=== PATIENT | male | born 1940 | race Caucasian/White ===

== ENCOUNTER 2019-07-20 07:27 | Inpatient (IN) | payer OTHER ==
[2019-07-20] MEDS ORDERED: ONDANSETRON 4 MG/2 ML VIAL ONE (08:19)
[2019-07-20] MEDS ORDERED: MORPHINE 4 MG/ML SYR ONE (08:19)
[2019-07-20 08:39] LABS: Absolute Lymphocytes (CBC) 1.1 K/uL (0.7-4.9); Basophils % 0.5 % (0-1.3); Hematocrit 48.2 % (39.6-49.0); Lymphocytes % 8.6 % (15.3-44.8); MPV 9.9 fL (7.6-11.3); RBC Red Blood Cell Count 5.21 M/uL (4.33-5.43)
[2019-07-20 08:49] LABS: Albumin 4.2 g/dL (3.4-5.0); Bilirubin Direct 0.1 mg/dL (0-0.2); Bilirubin Total 0.5 mg/dL (0.2-1.0); Potassium 3.8 mmol/L (3.5-5.1); Protein, Total 8.2 g/dL (6.4-8.2)
--- NOTE | 2019-07-20 09:13 | RAD REPORT ---
EXAM DESCRIPTION: CT - Abdomen Pelvis W Contrast - 07/20/2019 8:49 am CLINICAL HISTORY: Abdominal pain COMPARISON: none. TECHNIQUE: Computed axial tomography of the abdomen pelvis was obtained. 100 cc Isovue-300 was admin istered intravenously. Oral contrast was not requested which limits evaluation of bowel. All CT scans are performed using dose optimization technique as appropriate and may include automated exposure control or mA/KV adjustment according to patient size. FINDINGS: Liver, spleen, pancreas and adrenals are unremarkable. Bilateral renal cysts Large right inguinal hernia contains large and small bowel. Ileum is obstructed at the hernia site. A dditionally, the ascending colon is dilated at the hernia site. Several loops of small bowel are mode rately dilated. The wall of several loops of small bowel is thickened. Ascending colon measures 9 shaan timeters Small amount of ascites. Fluid is present within the mesenteric leaves. . The penis appears to extend through the hernia sac as well. A portion of bladder is herniated through a left inguinal hernia. The penis abuts the left lateral as pect of the hernia sac IMPRESSION: Large right inguinal hernia contains large and small bowel. The ascending colon is obstr ucted as it enters the hernia site. Obstruction of ileum is also suspected. The wall of several loops of small bowel is thickened indicating inflammation or ischemia. Small amount of ascites is present. Fluid is also present within the mesenteric leaves. A close loop obstruction may be present Left inguinal hernia contains portion of bladder
[2019-07-20] MEDS ORDERED: CIPROFLOXACIN 400mg IV 400 MG/200 ML BAG IV ONE (09:20)
[2019-07-20] MEDS ORDERED: METRONIDAZOLE 500mg IVPB 500 MG/100 ML BAG IV ONE (09:20)
--- NOTE | 2019-07-20 09:46 | ER ---
Nurse's Notes [facility] Name: Jose Luis Hunter Age: 79 yrs Sex: Male : 1940 Arrival Date: 07/20/2019 Time: 07:31 Bed 8 Private MD: Diagnosis: Unilateral inguinal hernia, with obstruction, without gangrene Presentation: 07/19 07:41 Chief complaint: Patient states: i have a hernia and was told i need surgery for this tw2 but it started hurting worse this morning and my lower stomach hurts. Coronavirus screen: Proceed with normal triage. Ebola Screen: Patient denies travel to an Ebola-affected area in the 21 days before illness onset. Initial Sepsis Screen: Does the patient meet any 2 criteria? No. Patient's initial sepsis screen is negative. Does the patient have a suspected source of infection? No. Patient's initial sepsis screen is negative. Risk Assessment: Do you want to hurt yourself or someone else? Patient reports no desire to harm self or others. Onset of symptoms was July 20, 2019. 07:41 Method Of Arrival: Wheelchair tw2 07:41 Acuity: EMILIA 3 tw2 09:13 Acuity: EMILIA 2 tw2 Triage Assessment: 07:44 General: Appears in no apparent distress. uncomfortable, slender, Behavior is tw2 cooperative, appropriate for age. Pain: Complains of pain in groin and lower abdomen. Historical: - Allergies: 07:47 No Known Allergies; tw2 - Home Meds: 07:47 None [Active]; tw2 - PMHx: 07:47 CVA; Hypertension; Hernia; tw2 - PSHx: 07:47 Carotid surgery; stents, carotid; tw2 - Immunization history:: Adult Immunizations. - Social history:: Smoking status: Smoking status: Patient reports the use of cigarette tobacco products, smokes one-half pack cigarettes per day. Screenin:37 Abuse screen: Denies threats or abuse. Nutritional screening: No deficits noted. tw2 Tuberculosis screening: No symptoms or risk factors identified. Fall Risk Secondary diagnosis (15 points) impaired mobility. Assessment: 07:45 General: Appears uncomfortable, slender, Behavior is cooperative, appropriate for age. tw2 Pain: Complains of pain in suprapubic area and left lower quadrant and right lower quadrant. Neuro: 09:14 Reassessment: left message for pts daughter at # [phone] to call back regarding tw2 pts allergies, pt states "i really dont know if i am allergic to anything". 09:16 Reassessment: Patient appears in no apparent distress at this time. Patient and/or tw2 family updated on plan of care and expected duration. Pain level reassessed. Patient states feeling better. 09:52 Reassessment: served as facility technician for hernia examination with Dr. Delgadillo at bedside tw2 at this time. 10:02 Reassessment: Dr. Peterson hospitalist at bedside at this time. tw2 10:41 Reassessment: Patient appears in no apparent distress at this time. Patient and/or tw2 family updated on plan of care and expected duration. Pain level reassessed. Patient is alert, oriented x 3, equal unlabored respirations, skin warm/dry/pink. Patient states feeling better. Vital Signs: 07:41 BP 191 / 102; Pulse 78; Resp 17; Temp 98(O); Pulse Ox 100% on R/A; Weight 57.15 kg (R); tw2 Height 5 ft. 8 in. (172.72 cm); Pain 6/10; 09:07 BP 165 / 98; Pulse 64; Resp 17; Pulse Ox 98% on R/A; tw2 09:43 BP 176 / 93; Pulse 90; Resp 17; Pulse Ox 99% on R/A; tw2 10:00 BP 167 / 95; Pulse 81; Resp 17; Pulse Ox 98% on R/A; tw2 10:40 BP 164 / 93; Pulse 88; Resp 17; Pulse Ox 99% on R/A; tw2 07:41 Body Mass Index 19.16 (57.15 kg, 172.72 cm) tw2 ED Course: 07:31 Patient arrived in ED. ag5 07:36 Lena Diane, CASA is Primary Nurse. tw2 07:38 Placed in gown. Bed in low position. Call light in reach. compliance associate on. Pulse ox tw2 on. NIBP on. 07:44 Triage completed. tw2 07:48 Arm band placed on. tw2 07:49 Torres Cooper PA is PHCP. [facility] 07:49 Toño Bonner MD is Attending Physician. jmm 08:04 Initial lab(s) drawn, by me, sent to lab. Inserted saline lock: 20 gauge in right dh3 antecubital area, using aseptic technique. Blood collected. 08:50 CT Abd/Pelvis - IV Contrast Only In Process Unspecified. EDMS 09:03 Notified Nurse Practitioner and/or Physician Airline Pilot of a critical lab result(s), tw2 Lactate 2.2. 09:20 examination of scrotal hernia, NITHIN Olvera. tw2 09:45 Tobias Peterson DO is Hospitalizing Provider. [facility] 10:38 Patient admitted, IV remains in place. tw2 Administered Medications: 08:13 Drug: Zofran (Ondansetron) 4 mg Route: IVP; Site: right antecubital; aa5 09:43 Follow up: Response: No adverse reaction tw2 08:15 Drug: morphine 4 mg Route: IVP; Site: right antecubital; aa5 09:25 Follow up: Response: No adverse reaction; Pain is decreased; RASS: Drowsy (-1) tw2 09:25 Drug: Flagyl 500 mg Volume: 100 ml; Route: IVPB; Rate: 200 ml/hr; Infused Over: 30 tw2 mins; Site: right antecubital; 09:50 Follow up: Response: No adverse reaction; IV Status: Completed infusion tw2 09:50 Drug: Cipro 400 mg Volume: 200 ml; Route: IVPB; Infused Over: 60 mins; Site: right tw2 antecubital; 10:41 Follow up: IV Status: Infusion continued upon admission tw2 Outcome: 09:46 Decision to Hospitalize by Provider. [facility] 10:38 Admitted to OR accompanied by nurse, family with patient, via stretcher, with chart, tw2 Report called to TOREY Bello RN 10:38 Condition: stable 10:38 Instructed on the need for admit. 10:41 Patient left the ED. tw2 Signatures: Dispatcher [employer] EDMS Torres Cooper PA PA jmm Calderon, Audri, RN RN aa5 Lena Diane RN RN tw2 Elizabeth Carney 3 Ester Ceja 5 Corrections: (The following items were deleted from the chart) 08:17 08:04 Inserted saline lock: 20 gauge in left antecubital area, using aseptic technique. aa5 Blood collected. dh3
--- NOTE | 2019-07-20 09:46 | EDPHYS ---
Physician Documentation [facility] Name: Jose Luis Hunter Age: 79 yrs Sex: Male : 1940 Arrival Date: 07/20/2019 Time: 07:31 Bed 8 Private MD: ED Physician Toño Bonner HPI: 07/19 07:53 This 79 yrs old Male presents to ER via Wheelchair with complaints of Groin Pain. m 07:53 The patient presents with swelling, that is moderate. Onset: The symptoms/episode jmm began/occurred this morning. Modifying factors: The symptoms are alleviated by nothing, the symptoms are aggravated by nothing. Associated signs and symptoms: Pertinent positives: abdominal pain, Pertinent negatives: fever. This is a 79 year old male with a history of htn, that presents to the ED with complaints of lower abdominal pain beginning this morning. Denies vomiting or diarrhea. . Historical: - Allergies: 07:47 No Known Allergies; tw2 - Home Meds: 07:47 None [Active]; tw2 - PMHx: 07:47 CVA; Hypertension; Hernia; tw2 - PSHx: 07:47 Carotid surgery; stents, carotid; tw2 - Immunization history:: Adult Immunizations. - Social history:: Smoking status: Smoking status: Patient reports the use of cigarette tobacco products, smokes one-half pack cigarettes per day. ROS: 07:53 Constitutional: Negative for fever, chills, and weight loss, Cardiovascular: Negative jm for chest pain, palpitations, and edema, Respiratory: Negative for shortness of breath, cough, wheezing, and pleuritic chest pain. 07:53 Abdomen/GI: Positive for abdominal pain. 07:53 All other systems are negative. Exam: 07:53 Head/Face: atraumatic. Eyes: EOMI, no conjunctival erythema appreciated ENT: Moist jmm Mucus Membranes Neck: Trachea midline, Supple Chest/axilla: Normal chest wall appearance and motion. Cardiovascular: Regular rate and rhythm. No edema appreciated Respiratory: Normal respirations, no respiratory distress appreciated 07:53 MS/ Extremity: Moves all extremities, no obvious deformities appreciated, no edema noted to the lower extremities Neuro: Awake and alert, normal gait Psych: Behavior is normal, Mood is normal, Patient is cooperative and pleasant 07:53 Constitutional: The patient appears alert, awake, uncomfortable. 07:53 Abdomen/GI: Inspection: abdomen appears normal, Palpation: moderate abdominal tenderness, in the right lower quadrant and left lower quadrant, mass, of the suprapubic area, Rectal exam: 07:53 : Male external genitalia: swelling, scrotal, is noted in the right inguinal area. Vital Signs: 07:41 BP 191 / 102; Pulse 78; Resp 17; Temp 98(O); Pulse Ox 100% on R/A; Weight 57.15 kg (R); tw2 Height 5 ft. 8 in. (172.72 cm); Pain 6/10; 09:07 BP 165 / 98; Pulse 64; Resp 17; Pulse Ox 98% on R/A; tw2 09:43 BP 176 / 93; Pulse 90; Resp 17; Pulse Ox 99% on R/A; tw2 10:00 BP 167 / 95; Pulse 81; Resp 17; Pulse Ox 98% on R/A; tw2 10:40 BP 164 / 93; Pulse 88; Resp 17; Pulse Ox 99% on R/A; tw2 07:41 Body Mass Index 19.16 (57.15 kg, 172.72 cm) tw2 MDM: 08:01 Patient medically screened. [facility] 09:44 Data reviewed: vital signs, nurses notes. Counseling: I had a detailed discussion with [facility] the patient and/or guardian regarding: the historical points, exam findings, and any diagnostic results supporting the discharge/admit diagnosis, lab results, radiology results, the need for further work-up and treatment in the hospital. ED course: I discussed the patient with Dr. Delgadillo and Dr. Peterson. Will admit to Dr. Peterson. . 07/19 07:53 Order name: Basic Metabolic Panel; Complete Time: 08:53 [facility] 07/19 07:53 Order name: CBC with Diff; Complete Time: 08:53 [facility] 07/19 07:53 Order name: Hepatic Function; Complete Time: 08:53 [facility] 07/19 07:53 Order name: Lipase; Complete Time: 08:53 [facility] 07/19 08:08 Order name: Lactate; Complete Time: 09:08 [facility] 07/19 08:51 Order name: CREATININE WHOLE BLOOD; Complete Time: 08:53 [facility] 07/19 07:53 Order name: IV Saline Lock; Complete Time: 08:07 [facility] 07/19 07:53 Order name: Labs collected and sent; Complete Time: 08:07 [facility] 07/19 08:09 Order name: CT Abd/Pelvis - IV Contrast Only; Complete Time: 09:15 [facility] Administered Medications: 08:13 Drug: Zofran (Ondansetron) 4 mg Route: IVP; Site: right antecubital; aa5 09:43 Follow up: Response: No adverse reaction tw2 08:15 Drug: morphine 4 mg Route: IVP; Site: right antecubital; aa5 09:25 Follow up: Response: No adverse reaction; Pain is decreased; RASS: Drowsy (-1) tw2 09:25 Drug: Flagyl 500 mg Volume: 100 ml; Route: IVPB; Rate: 200 ml/hr; Infused Over: 30 tw2 mins; Site: right antecubital; 09:50 Follow up: Response: No adverse reaction; IV Status: Completed infusion tw2 09:50 Drug: Cipro 400 mg Volume: 200 ml; Route: IVPB; Infused Over: 60 mins; Site: right tw2 antecubital; 10:41 Follow up: IV Status: Infusion continued upon admission tw2 Disposition: 14:45 Co-signature as Attending Physician, Toño Bonner MD I agree with the assessment and zahra plan of care. Disposition: 07/20/19 09:46 Hospitalization ordered by Tobias Peterson for Inpatient Admission. Preliminary diagnosis is Unilateral inguinal hernia, with obstruction, without gangrene. - Bed requested for Telemetry/MedSurg (Inpatient). - Status is Inpatient Admission. tw2 - Condition is Stable. - Problem is an acute exacerbation. - Symptoms have improved. Signatures: Dispatcher [employer] Toño Way MD MD cha Mickail, Joel, PA PA jmm Calderon, Audri, RN RN aa5 Lena Diane, RN RN tw2 Corrections: (The following items were deleted from the chart) 10:41 09:46 Hospitalization Ordered by Tobias Peterson DO for Inpatient Admission. Preliminary tw2 diagnosis is Unilateral inguinal hernia, with obstruction, without gangrene. Bed requested for Telemetry/MedSurg (Inpatient). Status is Inpatient Admission. Condition is Stable. Problem is an acute exacerbation. Symptoms have improved. derrek
[2019-07-20] MEDS ORDERED: Ringers Lactate 1,000 ML IV ONE (10:55)
[2019-07-20] MEDS ORDERED: FENTANYL CITR 100 MCG/2 ML ONE ×2 (11:28→12:17)
[2019-07-20] MEDS ORDERED: propofoL 200 MG/20 ML VIAL IV ONE (11:28)
[2019-07-20] MEDS ORDERED: MIDAZOLAM HCL 2 MG/2 ML INJ ONE (11:29)
[2019-07-20] MEDS ORDERED: dexAMETHasone 10 MG/ML VIAL ONE (11:29)
[2019-07-20] MEDS ORDERED: ROCURONIUM 50 MG/5 ML VIAL IV ONE (11:29)
[2019-07-20] MEDS ORDERED: LIDOCAINE 2% MPF 5 ML VIAL ONE (11:29)
[2019-07-20] MEDS ORDERED: EPHEDRINE SULF 50 MG/ML VIAL ONE (12:04)
[2019-07-20] MEDS ORDERED: NS 0.9% VIAL 10 ML ONE (12:04)
[2019-07-20] MEDS ORDERED: INSULIN -REGULAR HUMAN 50 UNIT/0.5 ML ML SQ SCH ×3 (12:29→16:30)
[2019-07-20] MEDS ORDERED: ACETAMINOPHEN 650MG/RECT SUPP PR PRN (12:29)
[2019-07-20] MEDS ORDERED: HYDRALAZINE HCL 20 MG/ML VIAL IV PRN (12:29)
[2019-07-20] MEDS ORDERED: ACETAMINOPHEN 500 MG TAB PO PRN (12:29)
[2019-07-20] MEDS: PIPER/TAZO/NS 3.375gm 3.375 GM/100 ML BAG IVPB SCH ×2 (12:29→18:16)
[2019-07-20] MEDS ORDERED: KETOROLAC 30 MG/ML INJ ONE (12:50)
[2019-07-20] MEDS ORDERED: GLYCOPYRROLATE 0.2 MG/ML SYR ONE (12:52)
--- NOTE | 2019-07-20 12:52 | P.BOP ---
Preoperative diagnosis: large bowel and small bowel obtruction, large incarcerated R inguinal herni Postoperative diagnosis: same Primary procedure: Open repair of large incarcerated inguinal hernia with mesh Estimated blood loss: <50cc Specimen: hernia sac Findings: see dictation Anesthesia: General Drain(s): Other Transferred to: Recovery Room
[2019-07-20] MEDS ORDERED: NEOSTIGMINE 1 MG/ML -5 ML ONE (12:53)
--- NOTE | 2019-07-20 13:40 | P.HP ---
Certification for Inpatient Patient admitted to: Inpatient With expected LOS: >2 Midnights Patient will require the following post-hospital care: None Practitioner: I am a practitioner with admitting privileges, knowledge of patient current condition, hospital course, and medical plan of care. Services: Services provided to patient in accordance with Admission requirements found in Title 42 Section 412.3 of the Code of Federal Regulations Patient History Date of Service: 07/20/19 Primary Care Provider: none Reason for admission: Right scrotal pain History of Present Illness: 79-year-old male presented to the emergency room with right scrotal pain. Patient with history of right inguinal hernia. He has had the hernia for multiple years. He admits recently moving to the area from [facility]. He had done some lifting over the weekend. Today he had more pain in enlargement of the hernia. He had some dry heaves. He denied any fever, chills, chest pain or shortness of breath. His last bowel movement was on Thursday. He denies any melena, nausea or vomiting. Patient came to the ER for further evaluation. In the ER patient was evaluated. CT scan revealed a large right inguinal hernia containing large and small bowel. The ascending colon appeared obstructed. Obstruction of the ileum also suspected. Vargas of several loops of small bowel was thinking indicating inflammation or ischemia. White count 13.3, hemoglobin 16. Platelet count 240. Sodium 141, potassium 3.8. BUN of 20, creatinine 1.2. GFR 59. Glucose will 218. Patient was given pain medication. Surgery was contacted in the ER. Surgery plans for emergent surgery. When I saw the patient ER, surgeon was present. Plan of care discussed with surgeon. Patient stable at this time. Allergies No Known Allergies Allergy (Verified 07/20/19 12:14) Home medications list reviewed: Yes - Past Medical/Surgical History Diabetic: No -: HTN -: Tobacco abuse -: Carotid arterial disease -: Hx of CVA 2019 -: Left carotid stent Psychosocial/ Personal History: Patient is new to the area. From [place], [place]. - Social History Smoking Status: Heavy Tobacco smoker (>10 cigarettes/day) Smoking therapy provided: Yes Patient receptive to therapy: Yes Alcohol use: No CD- Drugs: No Caffeine use: Yes Place of Residence: Home Review of Systems General: As per HPI Eyes: Unremarkable ENT: Unremarkable Respiratory: Unremarkable Cardiovascular: Unremarkable Gastrointestinal: Abdominal Pain, As per HPI Genitourinary: Unremarkable Musculoskeletal: Unremarkable Integumentary: As per HPI Neurological: Unremarkable Lymphatics: Unremarkable Physical Examination - Vital Signs Temperature: 97.2 F Blood Pressure: 143/73 Pulse: 65 Respirations: 16 - Physical Exam General: Alert, In no apparent distress, Oriented x3, Cooperative HEENT: Atraumatic, Mucous membr. moist/pink Neck: Supple Respiratory: Clear to auscultation bilaterally, Normal air movement Cardiovascular: Normal pulses, Regular rate/rhythm Gastrointestinal: Normal bowel sounds, Other (Large right inguinal hernia noted. Pain with palpation noted. Hernia goes in to the scrotal sac) Musculoskeletal: No contractures Integumentary: Tenderness/swelling (Tenderness to the right inguinal scrotal region.) Neurological: Normal speech, Normal strength at 5/5 x4 extr, Normal tone, Normal affect - Studies Laboratory Data (last 24 hrs) 07/20/19 08:04: WBC 13.3 H, Hgb 16.1, Hct 48.2, Plt Count 240 07/20/19 08:04: Sodium 141, Potassium 3.8, BUN 20 H, Creatinine 1.20, Glucose 218 H, Total Bilirubin 0.5, AST 20, ALT 22, Alkaline Phosphatase 99, Lipase 64 L Assessment and Plan - Plan Impression: Large right incarcerated inguinal hernia with obstruction of small and large bowel Acute renal injury suspect dehydration Hypertension History of CVA Tobacco abuse Hyperglycemia suspect diabetes mellitus type 2 History of carotid arterial disease with prior stent Plan: Large right incarcerated inguinal hernia with obstruction of small and large bowel: Patient will be admitted for further evaluation and treatment. Case discussed with surgery. Surgical intervention will be emergent. Await findings and will followup surgery. Will start IV Rocephin. Will continue IV fluids. Will provide medication for pain. DVT prophylaxis will be initiated tomorrow. Will continue to monitor closely. Acute renal injury suspect dehydration: Continue IV fluids. Electrolyte protocol in place. Hypertension: Obtain and verify home medication. Will provide medication as needed History of CVA: Will provide DVT prophylaxis. Tobacco abuse: Patient may require nicotine patch. Hyperglycemia suspect diabetes mellitus type 2: Will provide Accu-Cheks and sliding scale. Will check A1c to determine if patient has underlying diabetes. History of carotid arterial disease with prior stent: Will need to obtain and restart home medication. Discharge Plan: Home Plan to discharge in: 72 Hours - Advance Directives Does patient have a Living Will: No Does patient have a Durable POA for Healthcare: No - Code Status/Comfort Care Code Status Assessed: Yes (Patient is full code) Time Spent Managing Pts Care (In Minutes): 55
[2019-07-20] MEDS ORDERED: GLUCAGON 1 MG/VIAL IM PRN (13:48)
--- NOTE | 2019-07-20 14:16 | CON ---
Date of Consultation: 07/20/2019 This is an emergency phone call for a patient with an incarcerated large right inguinal hernia with b owel incarceration and obstruction. History Of Present Illness: This is the case of a 79-year-old patient, who has not been in the area for so long, but he says that he has this hernia in the right side for sometime, but in the last few hours it became very tender. He denies any other trauma. He was going to fix it 2 years ago, but he had a stroke at that moment, and he has not been able to do so. He noticed a lot of noise in his he rnia before consistent with a bowel content. At this time he went to the point that the bowel may be incarcerated, probably strangulated with a bowel obstruction, unable to eat. He denies any dysuria, hematuria, hematochezia, or melena. He denies any recent traveling out of the country. He denies a [place] family member sick at home. His doctors are not in town and he is new to the area, but he claimed he has no medical history, although there is a history of CVA and hypertension. Past Surgical History: After fully explaining he stated he has cataract surgery, and sent on his car otid. Allergies: NONE. Habits: Patient smokes half a pack a day. He does not drink alcohol. Family History: Noncontributory. Patient had no previous colonoscopies that he remembers. Physical Examination: General: Patient is awake and alert. HEENT: Pupils are equal and reactive, anicteric. Neck: Supple. Chest: Clear. Abdomen: Soft and depressible. Right lower quadrant tenderness. The patient has a large incarcerat ed right inguinal hernia. The scrotum is probably 5 to 6 times bigger than usual from all the intest niya there. Rectal: Deferred. Extremities: Good capillary refill. Laboratory Data: Blood work shows a WBC count of 13.3, with hemoglobin of 16.1, potassium 3.8, gluco se 218, BUN is 20. CAT scan of the abdomen and pelvis interpreted by Dr. Martinez as large right ingu inal hernia containing large and small bowel, the ascending colon is obstructed as it entered the her leann side. Obstruction of the small bowel was thickened indicating inflammation or ischemi a. A small amount of ascites is present. Patient also has a left inguinal hernia which contains por tion of the bladder. Assessment: This is a 79-year-old patient with emergency. Patient has incarceration of probably str angulated right inguinal hernia. He fully explained the emergent repair of the right inguinal hernia , possible laparotomy, possible bowel resection, possible ostomy with benefits, alternatives, and ris ks including, but not limited to infection, bleeding, damage to adjacent structures, anesthesia compl ications, recurrence, OH, and even . He also understands this may not relieve any symptoms, he might need more than one surgical intervention. He may or may not need a mesh. He was explained the pros and cons of mesh placement and he did consent for the mesh use. He also understands other path ology including left inguinal hernia that at this moment is not the emergency, it should be fixed kori ntually. Right now with the emergency we have right now, we might have to concentrate on the intesti nal salvage. He understood the importance of no heavy lifting in the future. The hospitalist is see ing the patient at this moment in the ER and trying to figure out his medical history and his risk fo r surgical intervention. The case was emergently booked in OR. DOMINIC/OMARI Voice ID: [id number] Report ID: [id number]
[2019-07-20] MEDS: NA CHLORIDE 0.9% 1,000 ML IV SCH (15:55)
[2019-07-20] MEDS: INSULIN -REGULAR HUMAN 50 UNIT/0.5 ML ML SQ SCH (18:00)
[2019-07-20 19:36] LABS: Urine Appearance TURBID; Urine Blood 3+ (NEG); Urine Color RED; Urine Glucose TRACE (NEG); Urine Protein 2+ (NEG); Urine Specific Gravity >=1.030 (1.005-1.030)
[2019-07-20] MEDS: ONDANSETRON 4 MG/2 ML VIAL IV PRN (19:45)
[2019-07-20] MEDS: MORPHINE 2 MG/ML SYR IV PRN (19:45)
[2019-07-20] MEDS: FAMOTIDINE 20 MG/2 ML VIAL IV SCH (19:45)
[2019-07-20 20:39] LABS: Urine Bilirubin NEGATIVE (NEG); Urine Microscopic Reflex ORDER UMIC
[2019-07-20 20:59] LABS: Urine RBC TNTC /HPF (NONE SEEN)
[2019-07-20 21:00] LABS: Urine Bacteria <20 /HPF (NONE SEEN); Urine Culture Reflex Order REFLEXED
--- NOTE | 2019-07-20 23:28 | OP ---
Date of Procedure: 07/20/2019 Surgeon: Doyle Delgadillo MD Preoperative Diagnoses: Incarcerated right inguinal hernia with large bowel obstruction and small sariah wel obstruction, large hernia. Postoperative Diagnoses: Incarcerated right inguinal hernia with large bowel obstruction and small b owel obstruction, large hernia. Procedure: Emergent repair of incarcerated right inguinal hernia with mesh. Anesthesia: General. Findings: Incarcerated large and small bowel in the right inguinal hernia causing obstruction. Complications: None. Indications: This is a case of a 79-year-old patient, who comes to the ER today complaining of bloat ing and abdominal pain right lower side with right inguinal hernia pain, seen in the ER and emergentl y found the patient to have a bowel which may be compromised in the right inguinal region. Very larg e hernia with large bowel and small bowel on it causing small bowel obstruction and large bowel obstr uction. The patient was fully explained the need for emergent exploration of that area and open repa ir of right inguinal hernia with possible use of mesh and possible laparotomy, possible resection, po ssible ostomy with benefits, alternatives, and risks including, but not limited to infection, bleedin g, damage to adjacent structures, anesthesia complication, recurrence, OH, and even . He also u nderstands this may not relieve the symptoms, he might need more than one surgical mention. He under stood and signed a consent. Description Of Procedure: Patient was emergently brought to the operating room, placed in supine pos ition. Anesthesia was done without complication. Abdominal area was prepped and draped in the usual sterile fashion. Local anesthetic placed in and then an incision was made in the right inguinal reg ion. We made the incision in a way that we could also hold the bowel in place, we do not what that t o reduce in the abdominal cavity. Rodrigo's fascia was opened, external oblique aponeurosis was opene d in direction of the fibers. Ilioinguinal nerve, iliohypogastric nerve protected behind external ob lique aponeurosis. We noticed large hernia sac going to the scrotum. We opened the hernia sac and c hecked the intestines. We had a kink in the small bowel and large bowel consistent with the findings of bowel obstruction, but the bowel still had peristalsis and still looked viable. There was some s welling over the area as described on the CAT scan, but I do not see the ischemia at this moment. Ephraim avila need bowel resection in the future if we see that this does not recover, but at this time we are go ing to give it a chance as the patient also requests. The abdomen was inspected, pulled out a little more to make sure there is bowel proximal and distal and those areas of kink are viable and they are still viable. So, we reduced this large bowel and small bowel back into the abdominal cavity and re moved the hernia sac. We had spermatic cord on the side with the help of [place]. So at that moment , we proceeded to close the floor of the canal by putting Prolene on the pubic tubercle, shelving edg e of the inguinal ligament, transversalis fascia. A mesh plug large was placed in the deep inguinal ring secured in place with VersaTack, once again making sure that the spermatic cord structures were intact. The hernia sac was previously ligated twice with Prolene making sure the bowel was not invol maciej and then after that I proceeded to place a mesh sheet and the mesh sheet was placed in the floor of the canal, securing to the pubic tubercle, shelving edge of the inguinal ligament, transversalis f ascia, making sure the spermatic cord has no strangulation. At that moment, I proceeded to bring the ilioinguinal nerve and iliohypogastric nerve back into the inguinal canal. Reconstructed the superf icial inguinal ring and closed that with 2-0 Prolene in a running fashion. Rodrigo fascia was closed with 3-0 chromic and the skin was approximated with kimberly. Sponge count and instrument counts were correct. Patient tolerated the procedure well. Patient was sent to recovery in stable condition. This patient still has bowel obstruction until he opens until proven otherwise. So, we going to keep the NG tube in. He has bladder on the opposite side, also we are going to keep the Osorio in for the next 24 hours. He has multiple medical issues and so he is going to be in the ICU overnight and if he improves by tomorrow, then we will proceed accordingly. We will keep the patient n.p.o., bowel re st. If he does not improve in the next few hours, we might have to even go back and do a laparotomy and then check the status of his intestines since at this moment it looks viable, it does not mean th at it may not develop an ischemia. At the same time this area shows 1 obstruction, but he might have more than 1 obstruction that we might not be able to see at this moment. If we see the obstruction does not resolve, then we will have to see for a malignancy or any tumors may be causing that. We mcclure ve no evidence of any colonoscopy at this moment he does not recall, so that is something that has to be checked also. If he does not improve right now, we will check with laparotomy. If he improves, still he will need colonoscopy postoperatively. JAGJIT Voice ID: [id number] Report ID: [id number]
[2019-07-21] MEDS: PIPER/TAZO/NS 3.375gm 3.375 GM/100 ML BAG IVPB SCH ×3 (00:06→18:19)
[2019-07-21] MEDS: ONDANSETRON 4 MG/2 ML VIAL IV PRN ×2 (02:21→12:17)
[2019-07-21] MEDS: MORPHINE 2 MG/ML SYR IV PRN ×3 (02:22→21:01)
[2019-07-21 04:19] LABS: Absolute Lymphocytes (CBC) 1.2 K/uL (0.7-4.9); Basophils % 0.1 % (0-1.3); Hematocrit 48.4 % (39.6-49.0); Lymphocytes % 5.1 % (15.3-44.8); MPV 10.1 fL (7.6-11.3); RBC Red Blood Cell Count 5.22 M/uL (4.33-5.43)
[2019-07-21 04:35] LABS: Magnesium 1.9 mg/dL (1.8-2.4); Potassium 4.9 mmol/L (3.5-5.1); Thyroid Stimulating Hormone 1.03 uIU/mL (0.360-3.740)
[2019-07-21] MEDS ORDERED: NA CHLORIDE 0.9% 500 ML IV ONE ×2 (05:15→22:56)
[2019-07-21] MEDS: NA CHLORIDE 0.9% 1,000 ML IV SCH ×2 (05:24→08:28)
[2019-07-21] MEDS: INSULIN -REGULAR HUMAN 50 UNIT/0.5 ML ML SQ SCH ×4 (05:26→18:00)
--- NOTE | 2019-07-21 07:59 | PN ---
Date of Progress Note: 07/21/2019 Reason For Service: Small bowel obstruction, incarcerated right inguinal hernia. Subjective: Patient is doing better. No complaints. NG tube, minimal. Having passing flatus. Objective: Vital Signs: Afebrile. General: Patient is awake and alert. No distress. HEENT: Pupils anicteric. Abdomen: Soft and benign. Surgical area is intact. Extremities: Good capillary refill. Laboratory Data: Blood work shows WBC count of 24.1 with a hemoglobin of 15.9 and platelets of 212. Chloride is 112, creatinine is 2.14. Assessment And Plan: We will get an abdominal x-rays. We see the abdominal obstruction is resolved. He understands that he still has a chance to go for laparotomy. We see that clinically he does not improve since the bowel in that area, although it looks viable at the moment of the surgery. He is still in observation for the next few hours with the possibility of going back to surgery if we see t hat clinically he does not improve or his bowel does not regain function. We will follow up his WBC count. He is already on antibiotics at this moment. We are still going to continue with bowel rest. NG tube. We are going to discuss with the hydration on this patient. He is having concentrated ur ine and also a low urine output, although his abdomen is benign with no obstruction present in that a domingo. His creatinine also was elevated but his medical doctors are working on that. We are going to encourage incentive spirometry and ambulation. We will follow the patient with you. DOMINIC/OMARI Voice ID: [id number] Report ID: [id number]
[2019-07-21] MEDS: FAMOTIDINE 20 MG/2 ML VIAL IV SCH ×2 (08:11→21:01)
[2019-07-21] MEDS ORDERED: ENOXAPARIN 40 MG/0.4 ML SQ SCH (09:00)
[2019-07-21 09:14] LABS: Blood Morphology Comment NOT SEEN (NOT SEEN); Platelet Estimate ADEQ
--- NOTE | 2019-07-21 09:26 | RAD REPORT ---
EXAM DESCRIPTION: RAD - Abdomen Single View - 07/21/2019 9:18 am CLINICAL HISTORY: Abdominal pain FINDINGS: Air is present within mildly dilated small bowel and colon having the appearance of a mild ileus Nasogastric tube is coiled within the stomach. The tip lies within the gastric fundus. Postsurgical changes are present
[2019-07-21 12:04] LABS: Absolute Lymphocytes (CBC) 1.5 K/uL (0.7-4.9); Basophils % 0.3 % (0-1.3); Hematocrit 46.3 % (39.6-49.0); Lymphocytes % 6.7 % (15.3-44.8); MPV 10.3 fL (7.6-11.3); RBC Red Blood Cell Count 4.99 M/uL (4.33-5.43)
[2019-07-21 12:08] LABS: Potassium 4.7 mmol/L (3.5-5.1)
--- NOTE | 2019-07-21 13:40 | P.PN ---
Subjective Date of Service: 07/21/19 Primary Care Provider: none Chief Complaint: Right scrotal pain Subjective: Other (Patient doing slightly better. Patient is postop inguinal hernia repair) Physical Examination - Vital Signs Temperature: 98.2 F Blood Pressure: 119/83 Pulse: 114 Respirations: 27 Pulse Ox (%): 99 - Physical Exam General: Alert, Cooperative HEENT: Atraumatic Neck: Supple Respiratory: Clear to auscultation bilaterally, Normal air movement Cardiovascular: Abnormal pulses (Sinus tachycardia) Gastrointestinal: Hypoactive, Other (Postoperative changes noted to the inguinal region) Neurological: Normal speech, Normal strength at 5/5 x4 extr, Normal tone, Normal affect - Studies Medications List Reviewed: Yes Assessment & Plan Discharge Plan: Home Plan to discharge in: Greater than 2 days Physician Review Additional Text: Impression: Large right incarcerated inguinal hernia with obstruction of small and large bowel Acute renal failure suspect related to dehydration History of Hypertension History of CVA Tobacco abuse Hyperglycemia with pre diabetes History of carotid arterial disease with prior stent Plan: Large right incarcerated inguinal hernia with obstruction of small and large bowel status post open right inguinal hernia repair: Patient appears to of done well post operatively. Patient remains on IV fluids and antibiotic therapy. Will adjust fluids accordingly. Renal function slightly worse today. Will consult nephrology for further recommendation. Will also order renal ul trasound. Will keep the patient in the ICU to follow closely. Continue hydration. Will also check CPK for possible rhabdomyolysis. Continue DVT prophylaxis. Anticipate improvement over the next 5 days. Acute renal failure suspect dehydration: Will adjust IV fluids. Will consult nephrology. Will obtain renal ultrasound. Hypertension: Hold off on blood pressure medication at this time. Will monitor closely. Will provide medication as needed History of CVA: Will provide DVT prophylaxis. Tobacco abuse: Patient may require nicotine patch. Hyperglycemia with pre diabetes: A1c 5.6. Will monitor closely. History of carotid arterial disease with prior stent: Restart home medication once stable Time Spent Managing Pts Care (In Minutes): 55
[2019-07-21] MEDS ORDERED: D5 0.45 NS 1,000 ML IV SCH (14:00)
--- NOTE | 2019-07-21 14:22 | RAD REPORT ---
EXAM DESCRIPTION: RAD - Chest Single View - 07/21/2019 2:15 pm CLINICAL HISTORY: follow up ab. surgery TECHNIQUE: AP portable chest image was obtained 07/21/2019 2:15 pm . FINDINGS: Lung volumes are low. No acute left lung field finding. Interstitial markings are increase d in the right base and there are patchy alveolar opacities on the right. An early right base pneumon ia would be a consideration and needs continued monitoring. Heart and vasculature are normal. No pneumothorax or large pleural effusion. NG tube is in place cur led in the stomach. There is no free air under the diaphragm. No acute bony abnormality seen. No acut e aortic findings suspected. IMPRESSION: Shallow inspiration film with atelectasis or early pneumonia changes at the right base. Follow-up needed as clinically warranted. No free air under the diaphragm. NG tube is well positioned.
--- NOTE | 2019-07-21 14:48 | ECHO ---
HEIGHT: 5 ft 8 in WEIGHT: 132 lb 0 oz DATE OF STUDY: 07/21/[address]: Tobias Peterson DO 2-DIMENSIONAL: YES M.MODE: YES DOPPLER: NO COLOR FLOW: NO TDS: YES PORTABLE: YES DEFINITY: NO BUBBLE STUDY: NO DIAGNOSIS: HYPERTENSION, HISTORY OF CVA CARDIAC HISTORY: CATHERIZATION: YES SURGERY: NO PROSTHETIC VALVE: NO PACEMAKER: NO MEASUREMENTS (cm) DIASTOLIC (NORMALS) SYSTOLIC (NORMALS) IVSd (0.6-1.2) LA Diam (1.9-4.0) LVEF % LVIDd (3.5-5.7) LVIDs (2.0-3.5) %FS % LVPWd (0.6-1.2) Ao Diam (2.0-3.7) 2 DIMENSIONAL ASSESSMENT: RIGHT ATRIUM: LEFT ATRIUM: [*] RIGHT VENTRICLE: LEFT VENTRICLE: TRICUSPID VALVE: MITRAL VALVE: PULMONIC VALVE: AORTIC VALVE: PERICARDIAL EFFUSION: [*] AORTIC ROOT: LEFT VENTRICULAR WALL MOTION: DOPPLER/COLOR FLOW: COMMENTS: VERY POOR STUDY. UNABLE TO INTERPRET THIS ECHO. RECOMMEND CHAN DUE TO VERY POOR WINDOWS. TECHNOLOGIST: Abhay THOMASON
--- NOTE | 2019-07-21 14:50 | RAD REPORT ---
EXAM DESCRIPTION: US - Renal Ultrasound-Complete - 07/21/2019 2:19 pm CLINICAL HISTORY: acute renal failure COMPARISON: Abdomen Pelvis W Contrast dated 07/20/2019 FINDINGS: The right kidney measures 8.7 x 4.6 x 5.2 cm. The left kidney measures 10.8 x 6.4 x 5.1 c m. Left kidney was more difficult to measure due to the presence of multiple large cysts. Largest is in the upper pole 5.6 cm in diameter. No solid mass of either kidney. Cortical thickness is normal. N o abnormal echogenicity seen. No hydronephrosis of either kidney. Bladder was contracted and cannot b e assessed. IMPRESSION: No hydronephrosis of either kidney. Multiple large left renal cysts none of which are suspicious.
--- NOTE | 2019-07-21 15:48 | P.CNS ---
Date of Consult: 07/21/19 Reason for Consult: ANGI Requesting Physician: Tobias Peterson Primary Care Provider: none Chief Complaint: Right scrotal pain History of Present Illness: 79 yo WM seen and examined in the ICU sp hernia surgery. Limited IH/ ROS due to confusion. 79-year-old male presented to the emergency room with right scrotal pain. Patient with history of right inguinal hernia. He has had the hernia for multiple years. He admits recently moving to the area from [facility]. He had done some lifting over the weekend. Today he had more pain in enlargement of the hernia. He had some dry heaves. He denied any fever, chills, chest pain or shortness of breath. His last bowel movement was on Thursday. He denies any melena, nausea or vomiting. Patient came to the ER for further evaluation. 07:53 This 79 yrs old Male presents to ER via Wheelchair with complaints of Groin Pain. [facility] 07:53 The patient presents with swelling, that is moderate. Onset: The symptoms/episode jmm began/occurred this morning. Modifying factors: The symptoms are alleviated by nothing, the symptoms are aggravated by nothing. Associated signs and symptoms: Pertinent positives: abdominal pain, Pertinent negatives: fever. This is a 79 year old male with a history of htn, that presents to the ED with complaints of lower abdominal pain beginning this morning. Denies vomiting or diarrhea. Allergies No Known Allergies Allergy (Verified 07/20/19 12:14) Home medications list reviewed: Yes Home Medications: Amlodipine [Norvasc] 10 mg PO DAILY 07/20/19 Aspirin Chewable [Aspirin Chewable*] 81 mg PO DAILY 07/20/19 Atorvastatin Calcium [Lipitor] 40 mg PO BEDTIME 07/20/19 lisinopriL [Lisinopril] 20 mg PO BID 07/20/19 - Past Medical/Surgical History Diabetic: No -: HTN -: Tobacco abuse -: Carotid arterial disease -: Hx of CVA 2019 -: Left carotid stent Psychosocial/ Personal History: Patient is new to the area. From [place], [place]. - Social History Smoking Status: Current every day smoker Alcohol use: No CD- Drugs: No Caffeine use: Yes Place of Residence: Home Review of Systems 10-point ROS is otherwise unremarkable General: Weakness, Malaise Gastrointestinal: Abdominal Pain, Distention Neurological: Weakness Physical Examination Temp Pulse Resp BP Pulse Ox 98.2 F 114 H 27 H 119/83 99 07/21/19 13:40 07/21/19 13:40 07/21/19 13:40 07/21/19 13:40 07/21/19 13:40 General: Cooperative, Mild distress HEENT: Atraumatic Neck: Supple Respiratory: Clear to auscultation bilaterally Cardiovascular: No edema, No rubs, Abnormal pulses Gastrointestinal: Distended, Tenderness, Guarding Musculoskeletal: No clubbing, No contractures Integumentary: No rashes, No cyanosis Neurological: Normal speech Urinary: Osorio catheter Blood work reviewed in the chart. Imagings Data: EXAM DESCRIPTION: RAD - Chest Single View - 07/21/2019 2:15 pm CLINICAL HISTORY: follow up ab. surgery TECHNIQUE: AP portable chest image was obtained 07/21/2019 2:15 pm . FINDINGS: Lung volumes are low. No acute left lung field finding. Interstitial markings are increased in the right base and there are patchy alveolar opacities on the right. An early right base pneumonia would be a consideration and needs continued monitoring. Heart and vasculature are normal. No pneumothorax or large pleural effusion. NG tube is in place curled in the stomach. There is no free air under the diaphragm. No acute bony abnormality seen. No acute aortic findings suspected. IMPRESSION: Shallow inspiration film with atelectasis or early pneumonia changes at the right base. Follow-up needed as clinically warranted. No free air under the diaphragm. NG tube is well positioned. EXAM DESCRIPTION: US - Renal Ultrasound-Complete - 07/21/2019 2:19 pm CLINICAL HISTORY: acute renal failure COMPARISON: Abdomen Pelvis W Contrast dated 07/20/2019 FINDINGS: The right kidney measures 8.7 x 4.6 x 5.2 cm. The left kidney vinny ures 10.8 x 6.4 x 5.1 cm. Left kidney was more difficult to measure due to the presence of multiple large cysts. Largest is in the upper pole 5.6 cm in diameter. No solid mass of either kidney. Cortical thickness is normal. No abnormal echogenicity seen. No hydronephrosis of either kidney. Bladder was contracted and cannot be assessed. IMPRESSION: No hydronephrosis of either kidney. Multiple large left renal cysts none of which are suspicious. Conclusions/Impression: A/ ANGI concerning for Prerenal azotemia vs ATN. Acidosis Hypocalcemia Hypotension with tachycardia DM II Hematuria and proteinuria Toxic metabolic encephalopathy P/ Continue current POC and Medications. Give IVF bolus. Increase IVF. No NSAIDs. AM labs. Daily weight. Thank you kindly for the consultation. Case reviewed with Dr. Peterson. Critical Care: Yes (>30min)
[2019-07-21] MEDS: D5 0.45 NS 1,000 ML IV SCH (15:59)
[2019-07-21] MEDS ORDERED: D5W 500 ML IV SCH (16:00)
[2019-07-22] MEDS: PIPER/TAZO/NS 3.375gm 3.375 GM/100 ML BAG IVPB SCH ×2 (00:34→08:45)
[2019-07-22] MEDS: D5 0.45 NS 1,000 ML IV SCH ×2 (00:49→06:43)
[2019-07-22] MEDS: MORPHINE 2 MG/ML SYR IV PRN (03:01)
[2019-07-22 05:21] LABS: Absolute Lymphocytes (CBC) 1.1 K/uL (0.7-4.9); Basophils % 0.1 % (0-1.3); Hematocrit 42.6 % (39.6-49.0); Lymphocytes % 5.8 % (15.3-44.8); MPV 10.3 fL (7.6-11.3); RBC Red Blood Cell Count 4.52 M/uL (4.33-5.43)
[2019-07-22 05:44] LABS: Magnesium 2.1 mg/dL (1.8-2.4); Uric Acid 8.1 mg/dL (3.5-7.2)
[2019-07-22 05:46] LABS: Potassium 5.6 mmol/L (3.5-5.1)
[2019-07-22] MEDS: INSULIN -REGULAR HUMAN 50 UNIT/0.5 ML ML SQ SCH ×5 (06:00→22:00)
[2019-07-22] MEDS: FAMOTIDINE 20 MG/2 ML VIAL IV SCH ×2 (08:45→21:00)
[2019-07-22] MEDS ORDERED: NA CHLORIDE 0.9% 500 ML ONE (10:18)
[2019-07-22] MEDS ORDERED: SODIUM BICARB 50 MEQ/50ML VIAL ONE (10:28)
[2019-07-22] MEDS ORDERED: ROCURONIUM 50 MG/5 ML VIAL IV ONE (10:35)
[2019-07-22] MEDS ORDERED: NOREPINEPHRINE 4 MG in D5W 250 ML IV PRN (10:42)
[2019-07-22 10:55] LABS: Arterial Blood Carboxyhemoglob 0.2 % (0-1.5); Blood Gas Oxyhemoglobin 90.3 % (94-97); Blood O2 Saturation 91.6 % (92-98.5)
[2019-07-22] MEDS ORDERED: MIDAZOLAM HCL 2 MG/2 ML INJ IV PRN (11:15)
[2019-07-22] MEDS ORDERED: propofoL 1,000 MG/100 ML VIAL IV PRN (11:15)
[2019-07-22] MEDS ORDERED: HALOPERIDOL LACT 5 MG/ML INJ IV PRN (11:15)
--- NOTE | 2019-07-22 11:19 | RAD REPORT ---
EXAM DESCRIPTION: RAD - Chest Single View - 07/22/2019 10:56 am CLINICAL HISTORY: status post intubation Chest pain. COMPARISON: Chest Single View dated 07/21/2019 FINDINGS: Portable technique limits examination quality. ET tube tip is above the mike. Enteric tube extends into the upper abdomen. Moderate worsening in b ilateral lung aeration, greater on the right, since comparative study seen.
[2019-07-22 11:31] LABS: Absolute Lymphocytes (CBC) 1.8 K/uL (0.7-4.9); Basophils % 0.1 % (0-1.3); Hematocrit 35.1 % (39.6-49.0); Lymphocytes % 11.7 % (15.3-44.8); MPV 10.7 fL (7.6-11.3); RBC Red Blood Cell Count 3.56 M/uL (4.33-5.43)
[2019-07-22 11:32] LABS: Protime INR 1.79
[2019-07-22] MEDS ORDERED: VASOPRESSIN 80 UNIT in NA CHLORIDE 0.9% 250 ML IV PRN (11:51)
[2019-07-22] MEDS ORDERED: Meropenem 1000 MG/VIAL IV SCH (11:52)
[2019-07-22 11:57] LABS: Potassium 6.5 mmol/L (3.5-5.1)
[2019-07-22] MEDS: Meropenem 500 MG in NA CHLORIDE 0.9% 100 ML IV SCH ×2 (12:00→21:03)
[2019-07-22] MEDS ORDERED: VANCOMYCIN 1.5 GM in NA CHLORIDE 0.9% 500 ML IVPB ONE (12:00)
--- NOTE | 2019-07-22 12:01 | P.PN ---
Subjective Date of Service: 07/22/19 Primary Care Provider: none Chief Complaint: Right scrotal pain Subjective: Other (Code blue called as the patient was having some altered mental status. ABG abnormal. Patient then had bradycardia and PEA. CPR started. Epinephrine/bicarb given. Patient intubated. CPR was successful. Patient now on Levophed. Case discussed at length with nephrology and surgery. Patient will obtain hemodialysis catheter. Case discussed at length with daughter.) Physical Examination - Vital Signs Temperature: 98 F Blood Pressure: 140/89 Pulse: 108 Respirations: 35 Pulse Ox (%): 93 - Physical Exam General: Other (Patient intubated ) Respiratory: Clear to auscultation bilaterally Cardiovascular: Normal pulses, Regular rate/rhythm Gastrointestinal: Hypoactive, Other (Postsurgical changes noted.), Distended (Some distention noted) - Studies Medications List Reviewed: Yes Assessment & Plan Discharge Plan: Home - Code Status/Comfort Care Code Status Assessed: Yes (Patient is full code) Physician Review Additional Text: Impression: Toxic/metabolic encephalopathy complicated with status post successful CPR with noted bradycardia/PEA, intubation, with noted septic shock Large right incarcerated inguinal hernia with obstruction of small and large bowel status post emergent repair of hernia with mesh Acute renal failure suspect related to dehydration and possible ATN with hyperkalemia History of Hypertension History of CVA Tobacco abuse Hyperglycemia with pre diabetes History of carotid arterial disease with prior stent Plan: Toxic/metabolic encephalopathy complicated with status post successful CPR with noted bradycardia/PEA, intubation, with noted septic shock: Patient now intubated. Continue vent protocol. Case discussed at length with nephrology, pulmonology and surgery. Patient will require temporary dialysis catheter for dialysis. Continue aggressive IV fluids. Patient currently on Levophed. May need to start Jose Luis-Synephrine if blood pressure remains low. Will also provide IV hydrocortisone. Will obtain blood cultures. Will discontinue Zosyn. Will private branch exchange installer to meropenem and vancomycin. Pharmacy to monitor and adjust. Will provide DVT prophylaxis-heparin. Will continue to monitor closely. Advanced directives and advanced care planning readdressed with the daughter who was present. Patient remains full code at this time. If his condition worsens this will need to be reconsidered. Continue aggressive management. Patient critical. Large right incarcerated inguinal hernia with obstruction of small and large bowel status post emergent repair of hernia with mesh: Continue as above. Case discussed with surgery. Patient may require exploratory laparotomy if his condition continues to decline without clear etiology of septic shock. Acute renal failure suspect related to dehydration and possible ATN with hyperkalemia: Case discussed at length with nephrology. Temporary dialysis catheter will be placed. Patient will receive dialysis. History of Hypertension: Will continue to monitor closely. Patient off medica tion History of CVA: Once medically stable will consider CT scan of the head to further evaluate Tobacco abuse: May require nicotine patch. Hyperglycemia with pre diabetes: Continue IV fluids. History of carotid arterial disease with prior stent: Continue monitor closely. Will consider CT scan of the head to further evaluate. Time Spent Managing Pts Care (In Minutes): 55
[2019-07-22] MEDS: HYDROCORTISONE SUC 100 MG INJ IV SCH ×2 (12:42→21:01)
--- NOTE | 2019-07-22 13:01 | RAD REPORT ---
EXAM DESCRIPTION: Charismat Single View07/22/2019 12:41 pm CLINICAL HISTORY: Device placement/central venous catheter placement IMPRESSION: Central venous catheter with its tip in the superior vena cava No pneumothorax
[2019-07-22 13:59] LABS: Arterial Blood Carboxyhemoglob 0.4 % (0-1.5); Blood Gas Oxyhemoglobin 71.8 % (94-97); Blood O2 Saturation 72.9 % (92-98.5)
[2019-07-22] MEDS ORDERED: SODIUM BICARB 50 MEQ/50ML VIAL IV ONE (14:00)
[2019-07-22] MEDS ORDERED: ALBUMIN HUMAN 25% 100 ML IV ONE (14:21)
--- NOTE | 2019-07-22 14:24 | P.CNS ---
Date of Consult: 07/22/19 Reason for Consult: Respiratory failure shock Primary Care Provider: none Chief Complaint: Cardiac arrest History of Present Illness: Patient is 79 years of age status post hernia operation and became armed unresponsive was intubated is currently in shock on vasopressors ventilator daughter at the bedside he has a history of COPD very heavy smoker is not using any bronchodilators at home very active at baseline no prior history of coronary artery disease he does have some carotid disease and was operated on the left side of his neck this admission was precipitated by incarcerated hernia and developed sudden onset of pain takes blood pressure pills Allergies No Known Allergies Allergy (Verified 07/20/19 12:14) Home Medications: Amlodipine [Norvasc] 10 mg PO DAILY 07/20/19 Aspirin Chewable [Aspirin Chewable*] 81 mg PO DAILY 07/20/19 Atorvastatin Calcium [Lipitor] 40 mg PO BEDTIME 07/20/19 lisinopriL [Lisinopril] 20 mg PO BID 07/20/19 - Past Medical/Surgical History Diabetic: No -: HTN -: Tobacco abuse -: Carotid arterial disease -: Hx of CVA 2019 -: Left carotid stent Psychosocial/ Personal History: Patient is new to the area. From [place], [place]. - Social History Smoking Status: Current every day smoker Alcohol use: No CD- Drugs: No Caffeine use: Yes Place of Residence: Home Review of Systems is unable to be obtained Physical Examination Temp Pulse Resp BP Pulse Ox 98 F 101 H 35 H 100/55 L 93 07/22/19 12:07 07/22/19 13:00 07/22/19 12:07 07/22/19 13:00 07/22/19 12:07 General: Alert, Cooperative Respiratory: Clear to auscultation bilaterally, Diminished Cardiovascular: No edema, Regular rate/rhythm Gastrointestinal: Normal bowel sounds, Soft and benign Musculoskeletal: No clubbing, No contractures Integumentary: No rashes, No significant lesion - Problems (1) Shock Current Visit: Yes Status: Acute Plan: Patient is 79 years of age with a history of presume COPD was here for incarcerated hernia surgery is currently on Levophed acute renal failure and 50% FiO2 patient's white count is declining his acidotic I have given him 2 units of bicarb will give another dose of albumin chest x-ray is very abnormally does show bilateral pulmonary infiltrates more likely he is aspirated continue with broad-spectrum antibiotics patient is alert cooperative start patient on bronchodilators change to her D5 bicarbonate solution his also hyperkalemia patient is on lisinopril at home ventilator settings reviewed
[2019-07-22] MEDS ORDERED: ALBUTEROL 2.5 MG/3 ML NEB SOL IH SCH ×2 (14:27→20:00)
[2019-07-22] MEDS: FENTANYL CITR 100 MCG/2 ML IV PRN ×2 (14:34→21:02)
[2019-07-22] MEDS: D5W 1,000 ML with NA BICARB 8.4% 100 MEQ IV SCH ×4 (14:51→21:44)
[2019-07-22] MEDS ORDERED: VANCOMYCIN 500 MG in NA CHLORIDE 0.9% 100 ML IVPB SCH (15:00)
[2019-07-22] MEDS: IPRATROPIUM BROM 0.5MG/2.5ML NEB SCH ×2 (15:02→20:10)
[2019-07-22] MEDS: LORazepam 2 MG/ML VIAL IV PRN ×2 (16:07→22:35)
[2019-07-22] MEDS ORDERED: FLUMAZENIL 0.1 MG/ML (5 mL VIAL) IV ONE (16:45)
[2019-07-22] MEDS: D50W 25 GM/50 ML SYRINGE/VIAL IV PRN (17:50)
[2019-07-22] MEDS ORDERED: IPRATROPIUM BROM 0.5MG/2.5ML NEB SCH (20:00)
[2019-07-22] MEDS: HEPARIN 5000 UNIT/ML 1 ML VIAL SQ SCH (21:01)
[2019-07-22] MEDS: NOREPINEPHRINE 8 MG in D5W 250 ML IV PRN (21:43)
--- NOTE | 2019-07-22 22:11 | P.PN ---
Date of Service: 07/22/19 Vital Signs Temp Pulse Resp BP Pulse Ox 98 F 118 H 14 92/40 L 95 07/22/19 12:07 07/22/19 19:15 07/22/19 21:32 07/22/19 19:15 07/22/19 21:32 Medications Acetaminophen (Tylenol -Extra Strength) 500 mg PO Q4HP PRN PRN Reason: TEMP > 101' F Stop: 08/19/19 12:30 Acetaminophen (Tylenol Suppository) 650 mg IA Q6HP PRN PRN Reason: TEMP > 101' F Stop: 08/19/19 12:30 Dextrose (Dextrose 50% Syringe/Vial) 12.5 gm IV PRN PRN; Protocol PRN Reason: HYPOGLYCEMIA Stop: 08/19/19 13:49 Last Admin: 07/22/19 17:50 Dose: 12.5 gm Documented by: Famotidine (Pepcid) 20 mg IV BID [facility]; Protocol Stop: 08/19/19 21:01 Last Admin: 07/22/19 21:00 Dose: 20 mg Documented by: Fentanyl Citrate (Sublimaze) 25 mcg IV Q4HP PRN PRN Reason: Pain scale 8-10 (Severe) Stop: 08/21/19 11:16 Last Admin: 07/22/19 21:02 Dose: 25 mcg Documented by: Glucagon (Glucagen) 1 mg IM 1X PRN; Protocol PRN Reason: HYPOGLYCEMIA Stop: 08/19/19 13:49 Haloperidol Lactate (Haldol) 2 mg IV Q4HP PRN PRN Reason: AGITATION Stop: 08/21/19 11:16 Heparin Sodium (Porcine) (Heparin 5,000 Units/Ml) 5,000 unit SQ Q12HR [facility] Stop: 08/21/19 21:01 Last Admin: 07/22/19 21:01 Dose: 5,000 unit Documented by: Heparin Sodium (Porcine) (Heparin 1,000 Units/Ml) 6,000 unit IV EVERY HD PRN PRN Reason: AFTER EACH Stop: 08/21/19 14:47 Heparin Sodium (Porcine) (Heparin 1,000 Units/Ml) 2,000 unit IV EVERY HD [facility] Stop: 07/27/19 15:01 Hydralazine HCl (Apresoline) 10 mg IV Q6HP PRN PRN Reason: FOR SBP>160 OR DBP>100 MMHG Stop: 08/19/19 12:30 Hydrocortisone Sodium Succinate (Solu-Cortef) 100 mg IV Q12HR [facility] Stop: 08/21/19 11:52 Last Admin: 07/22/19 21:01 Dose: 100 mg Documented by: Propofol (Diprivan) 1,000 mg in 100 mls @ 0 mls/hr IV PRN PRN; Protocol PRN Reason: SEDATION Stop: 08/21/19 11:16 Vasopressin 80 unit/ Sodium (Chloride) 254 mls @ 0 mls/hr IV PRN PRN; Protocol PRN Reason: Hemodynamic Parameters Stop: 08/21/19 11:52 Meropenem 500 mg/ Sodium (Chloride) 100 mls @ 100 mls/hr IV Q12HR [facility] Stop: 08/21/19 12:01 Last Admin: 07/22/19 21:03 Dose: 100 mls Documented by: Norepinephrine Bitartrate 8 mg (/ Dextrose) 258 mls @ 0 mls/hr IV PRN PRN; Protocol PRN Reason: Hemodynamic Parameters Stop: 08/21/19 14:01 Last Admin: 07/22/19 21:43 Dose: 258 mls Documented by: Sodium Bicarbonate 100 meq/ (Dextrose/Water) 1,100 mls @ 200 mls/hr IV .Q5H30M [facility] Stop: 08/21/19 15:01 Last Admin: 07/22/19 21:44 Dose: 1,100 mls Documented by: Vancomycin HCl 500 mg/ Sodium (Chloride) 100 mls @ 100 mls/hr IVPB AFTER EACH DIALYSIS [facility] Stop: 08/21/19 15:01 Insulin Human Regular (Novolin -R) 0 unit SQ Q4H [facility]; Protocol Stop: 08/21/19 22:01 Ipratropium [place] (Atrovent Neb) 0.5 mg NEB [id number] SCH Stop: 08/21/19 15:01 Last Admin: 07/22/19 15:02 Dose: 0.5 mg Documented by: Lorazepam (Ativan) 2 mg IV Q2HP PRN PRN Reason: SEDATION Stop: 08/21/19 11:16 Last Admin: 07/22/19 16:07 Dose: 2 mg Documented by: Midazolam HCl (Versed) 2 mg IV Q2HP PRN PRN Reason: SEDATION Stop: 08/21/19 11:16 Morphine Sulfate (Morphine Sulfate) 2 mg IV Q6H PRN PRN Reason: Pain scale 5-7 (Moderate) Stop: 08/19/19 12:30 Last Admin: 07/22/19 03:01 Dose: 2 mg Documented by: Ondansetron HCl (Zofran) 4 mg IV Q6HP PRN PRN Reason: NAUSEA / VOMITING Stop: 08/19/19 12:30 Last Admin: 07/21/19 12:17 Dose: 4 mg Documented by: Sodium Chloride (Normal Saline Flush) 10 ml IV BID [facility] Stop: 08/19/19 21:01 Last Admin: 07/22/19 21:43 Dose: 10 ml Documented by: Thiamine HCl (Vitamin B-1) 100 mg IVP DAILY [facility] Stop: 08/22/19 09:01 Assessment/ Plan: Nephrology Unresponsive today requiring resuscitation. Unable to obtain IH/ ROS due to intubation. Vitals, medications, blood work and imaging reviewed in the chart. General: Cooperative, Mild distress HEENT: Atraumatic Neck: Supple Respiratory: Clear to auscultation bilaterally Cardiovascular: No edema, No rubs, Abnormal pulses Gastrointestinal: Distended, Tenderness, Guarding Musculoskeletal: No clubbing, No contractures Integumentary: No rashes, No cyanosis Neurological: Normal speech Urinary: Osorio catheter Blood work reviewed in the chart. Imagings Data: EXAM DESCRIPTION: RAD - Chest Single View - 07/21/2019 2:15 pm CLINICAL HISTORY: follow up ab. surgery TECHNIQUE: AP portable chest image was obtained 07/21/2019 2:15 pm . FINDINGS: Lung volumes are low. No acute left lung field finding. Interstitial markings are increased in the right base and there are patchy alveolar opacities on the right. An early right base pneumonia would be a consideration and needs continued monitoring. Heart and vasculature are normal. No pneumothorax or large pleural effusion. NG tube is in place curled in the stomach. There is no free air under the diaphragm. No acute bony abnormality seen. No acute aortic findings suspected. IMPRESSION: Shallow inspiration film with atelectasis or early pneumonia changes at the right base. Follow-up needed as clinically warranted. No free air under the diaphragm. NG tube is well positioned. EXAM DESCRIPTION: US - Renal Ultrasound-Complete - 07/21/2019 2:19 pm CLINICAL HISTORY: acute renal failure COMPARISON: Abdomen Pelvis W Contrast dated 07/20/2019 FINDINGS: The right kidney measures 8.7 x 4.6 x 5.2 cm. The left kidney measures 10.8 x 6.4 x 5.1 cm. Left kidney was more difficult to measure due to the presence of multiple large cysts. Largest is in the upper pole 5.6 cm in diameter. No solid mass of either kidney. Cortical thickness is normal. No abnormal echogenicity seen. No hydronephrosis of either kidney. Bladder was contracted and cannot be assessed. IMPRESSION: No hydronephrosis of either kidney. Multiple large left renal cysts none of which are suspicious. Conclusions/Impression: A/ ANGI concerning for Prerenal azotemia vs ATN. Acidosis Hypocalcemia Hypotension with tachycardia DM II Hematuria and proteinuria Toxic metabolic encephalopathy P/ Continue current POC and Medications. Arrange for temporary catheter placement. Arrange for acute dialysis. Continue pressor therapy. Ventilator support as ordered. No NSAIDs. AM labs. Daily weight. Case reviewed with Dr. Peterson. Greater than 30min patient care.
[2019-07-22 23:30] VITALS: O2SAT 96
[2019-07-23] MEDS: IPRATROPIUM BROM 0.5MG/2.5ML NEB SCH ×4 (00:45→20:00)
[2019-07-23] MEDS: INSULIN -REGULAR HUMAN 50 UNIT/0.5 ML ML SQ SCH ×5 (01:57→17:03)
[2019-07-23] MEDS: FENTANYL CITR 100 MCG/2 ML IV PRN (03:13)
[2019-07-23] MEDS: D5W 1,000 ML with NA BICARB 8.4% 100 MEQ IV SCH ×4 (04:01→17:05)
[2019-07-23 05:42] LABS: Arterial Blood Carboxyhemoglob 0.5 % (0-1.5); Blood Gas Oxyhemoglobin 91.3 % (94-97); Blood O2 Saturation 92.8 % (92-98.5)
[2019-07-23 05:54] LABS: Magnesium 2.5 mg/dL (1.8-2.4)
[2019-07-23 05:55] VITALS: BMI 21.4
[2019-07-23 05:57] LABS: Absolute Lymphocytes (CBC) 1.2 K/uL (0.7-4.9); Basophils % 0.1 % (0-1.3); Hematocrit 32.9 % (39.6-49.0); Lymphocytes % 9.3 % (15.3-44.8); MPV 11.4 fL (7.6-11.3); RBC Red Blood Cell Count 3.49 M/uL (4.33-5.43)
[2019-07-23 06:05] LABS: Potassium 5.9 mmol/L (3.5-5.1)
[2019-07-23 06:38] LABS: Blood Morphology Comment NOT SEEN (NOT SEEN); Platelet Estimate DECR
[2019-07-23 07:15] LABS: Phosphorus 8.6 mg/dL (2.5-4.9)
--- NOTE | 2019-07-23 07:37 | RAD REPORT ---
EXAM DESCRIPTION: RAD - Chest Single View - 07/23/2019 6:56 am CLINICAL HISTORY: vented, follow uprespiratory distress COMPARISON: Portable July 21 TECHNIQUE: AP portable chest image was obtained 07/23/2019 6:56 am . FINDINGS: Lung volumes remain low. NG tube and ET tube positioning are stable. Right jugular central line also unchanged. Right base infiltrate and/ or atelectasis changes are present similar to prior imaging. Overall alveo lar opacification pattern has improved. Patchy opacification remains at the left base. No vascular en gorgement. No pneumothorax. Prominent stool and air pattern distending the colon. This is only partially imaged. IMPRESSION: Improved aeration of the lung garcia with diminishing alveolar edema. Right base infiltrate and/ or atelectasis still present. Left base patchy opacification not substanti ally different given the low lung volumes. Tubes and lines are unchanged.
[2019-07-23] MEDS ORDERED: THIAMINE 200 MG/2 ML INJ IVP SCH (09:00)
[2019-07-23] MEDS: HYDROCORTISONE SUC 100 MG INJ IV SCH (09:28)
[2019-07-23] MEDS: Meropenem 500 MG in NA CHLORIDE 0.9% 100 ML IV SCH (09:28)
[2019-07-23] MEDS: HEPARIN 5000 UNIT/ML 1 ML VIAL SQ SCH (09:30)
--- NOTE | 2019-07-23 09:30 | RAD REPORT ---
EXAM DESCRIPTION: CT - Head Brain Wo Cont - 07/22/2019 10:43 pm CLINICAL HISTORY: evaluate for AMS COMPARISON: No comparisons TECHNIQUE: Axial 5 mm thick images of the head were obtained without IV contrast. All CT scans are performed using dose optimization technique as appropriate and may include automated exposure control or mA/KV adjustment according to patient size. FINDINGS: No intracranial hemorrhage, mass, edema or shift of mid-line structures. No acute cortical based infarction identified. No cortical edema or sulcal effacement. No abnormal extra-axial fluid c ollections. Atrophy changes are mild for age. Ventricles or to any volume loss. Arterial and physiolo gic calcifications are present. Patient has moderate severity diminished attenuation in the cerebral white matter. Brainstem, thalamus and basal ganglia chronic ischemic changes are minimal. Left mastoid air cells are clear. Right mastoid air cells are under developed. Paranasal sinuses are clear. No globe or orbital content abnormality. No acute bony findings. IMPRESSION: Moderate atrophy and mild chronic ischemic changes are present. Ventricles are in propor tion to any volume loss. No hemorrhage, edema or acute intracranial finding. Chronic ischemic changes can mask nonhemorrhagic acute infarction. MR brain followup can be obtained if there is ongoing concern for acute ischemia.
[2019-07-23] MEDS ORDERED: WATER FOR INJ,STERILE 10 ML ONE (09:34)
[2019-07-23] MEDS: FAMOTIDINE 20 MG/2 ML VIAL IV SCH (09:36)
--- NOTE | 2019-07-23 11:08 | P.PN ---
Subjective Date of Service: 07/23/19 Primary Care Provider: none Chief Complaint: Right scrotal pain Subjective: Other (No significant change. Patient remains intubated.) Physical Examination - Vital Signs Temperature: 97.1 F Blood Pressure: 168/97 Pulse: 99 Respirations: 19 Pulse Ox (%): 88 - Physical Exam General: Other (Patient remains intubated. No significant response to pain) Respiratory: Clear to auscultation bilaterally (Anteriorly) Cardiovascular: Normal pulses, Regular rate/rhythm Gastrointestinal: Hypoactive, Other (Abdomen is rigid. Some ecchymosis noted to the right inguinal region and to the penis. Some dependent edema noted to the back. Mottling noted), Rigidity, Distended Integumentary: Other (Mottling noted to the lower extremities) - Studies Medications List Reviewed: Yes Assessment & Plan Discharge Plan: LTAC Plan to discharge in: Greater than 2 days - Code Status/Comfort Care Code Status Assessed: Yes (Advanced care planning readdressed. Family is to reassess current status. ) Physician Review Additional Text: Impression: Toxic/metabolic encephalopathy complicated with status post successful CPR with noted bradycardia/PEA, intubation, with noted septic shock complicated with aspiration pneumonia: Large right incarcerated inguinal hernia with obstruction of small and large bowel status post emergent repair of hernia with mesh: Acute renal failure related to septic shock/dehydration/possible ATN with hyperkalemia: Anemia with thrombocytopenia History of Hypertension History of CVA Tobacco abuse Hyperglycemia with pre diabetes History of carotid arterial disease with prior stent Plan: Toxic/metabolic encephalopathy complicated with status post successful CPR with noted bradycardia/PEA, intubation, with noted septic shock complicated with aspiration pneumonia: Patient remains intubated. X-ray confirms aspiration pneumonia. Antibiotics adjusted yesterday. Patient now on meropenem and vancomycin. Patient remains on vasopressors-Levophed and vasopressin. Patient on DVT prophylaxis-heparin. Patient had episode of hypotension with bradycardia with dialysis today. Dialysis held. Vasopressors increase. Blood pressure heart rate now stable. Will obtain the ABG to assess oxygenation status. Will also order KUB. Suspect underlying liver failure is well. Multiorgan failure noted. Echocardiogram done earlier in the hospitalization was a poor study. CHAN was recommended. Will discuss with cardiology. Thrombocytopenia noted and trending down. Will order thrombocytopenia workup. Advanced directives readdressed with family including and daughter. They understand his prognosis is poor and condition critical. This was addressed in detail. Plan of care discussed as well. They are to reconvene and make a decision on advanced directives. Patient remains full code at this time. Large right incarcerated inguinal hernia with obstruction of small and large bowel status post emergent repair of hernia with mesh: Continue as above. Case discussed with surgery yesterday. Will order KUB to further evaluate. Patient may require exploratory laparotomy if his condition continues to decline without clear etiology of septic shock. Acute renal failure related to septic shock/dehydration/possible ATN with hyperkalemia: Patient given dialysis but held this morning due to hypotension and bradycardia. Will discuss further with nephrology. Anemia with thrombocytopenia: Likely related to septic shock. Will monitor CBC closely. Will obtain thrombocytopenia workup. Will discuss further with pulmonology History of Hypertension: Off medication at this time. Continue vasopressor therapy History of CVA: CT scan shows chronic changes. No acute CVA noted. Tobacco abuse: Will readdress once medically stable Hyperglycemia with pre diabetes: Continue IV fluids. History of carotid arterial disease with prior stent: Continue monitor closely. Continue as above Time Spent Managing Pts Care (In Minutes): 55
[2019-07-23 11:38] LABS: Protime INR 2.26
[2019-07-23 11:48] LABS: Albumin 1.9 g/dL (3.4-5.0); Alkaline Phosphatase 261 U/L (45-117); Bilirubin Direct 0.8 mg/dL (0-0.2); Bilirubin Total 2.4 mg/dL (0.2-1.0); Protein, Total 4.5 g/dL (6.4-8.2)
[2019-07-23 11:50] LABS: ALT/SGPT 4386 U/L (12-78); AST/SGOT 7620 U/L (15-37)
[2019-07-23 11:55] LABS: Arterial Blood Carboxyhemoglob 0.5 % (0-1.5); Blood Gas Oxyhemoglobin 88.9 % (94-97); Blood O2 Saturation 90.4 % (92-98.5)
--- NOTE | 2019-07-23 12:34 | PN ---
Date of Progress Note: 07/23/2019 Subjective/interval History: Patient had dialysis this morning; however, it had to be terminated in 2 hours because of severe hypotension and inability to tolerate dialysis. He has remained persistent ly hyperkalemic. We are going to repeat the potassium levels again later today. His lactic acid con tinues to be elevated and he remains on 2 pressors including vasopressin and norepinephrine. Physical Examination: General: He is intubated and unresponsive. He is on 100% FiO2 with noted respiratory distress despi te being on 100% FiO2. HEENT: Atraumatic head. Lungs: Auscultation of the lungs revealed decreased breath sounds at bilateral bases and bilateral e qual air entry anteriorly. Abdomen: Soft. Extremities: Showed no evidence of edema. Neuro: No neurological signs were noted of any brain recovery. Laboratory Data: Showing severe acidosis with a pH of 7.1, sodium of 134, potassium of 5.9, BUN of 5 6, and creatinine of 4. Lactic acid was elevated to 11.9, calcium was low. He has severely elevated LFTs with AST of 7620 and ALT of 4386. Lactate dehydrogenase was severely elevated as well and proc alcitonin was very, very high. CBC showing WBC count of 12.7, hemoglobin of 10.7, hematocrit of 32.9 , and platelet count of 99. INR was elevated to 2.2. Current Medications: Have been reviewed in detail. He remains on 2 pressors as discussed above and he also remains on Solu-Medrol and albumin intermittently and he is on vancomycin post HD and meropen em 500 mg every 12 hours. Impression: 1.Acute renal failure secondary to acute tubular necrosis with severe oliguria secondary to septic s hock and hypotension. The patient has been started on dialysis, but he is unable to tolerate dialysi s because of hypotension, hence that dialysis was discontinued. We will continue to monitor him clos sandhya and discussed with the family regarding poor prognosis. 2.Respiratory failure with severe hypoxemia and acidosis. The patient is being followed by Pulmon[facility] y Critical Care and his vent settings are being continued to be adjusted with intermittent doses of b icarb boluses to improve his acidosis. 3.Toxic metabolic encephalopathy with possible anoxic brain injury. The patient's neurological stat us is difficult to be determined at this time with ongoing multiorgan failure. 4.Severe liver failure secondary to shock liver. 5.Thrombocytopenia, likely secondary to disseminated intravascular coagulation with coagulopathy as well. Plan: The patient's condition remains very, very guarded and high degree of mortality given multiorg an failure. At this time, he is unable to be dialyzed appropriately also because of hypotension. We do not have CRRT available here and the patient is unstable to be transferred out at this time. I d iscussed with the family regarding poor prognosis. Dr. Peterson also was present and I have discussed with him in detail as well. The patient possibly might end up going on hospice in the near future be cause of severe septic shock, which is not responding at this time. VV/MODL Voice ID: [id number] Report ID: [id number]
--- NOTE | 2019-07-23 13:25 | RAD REPORT ---
EXAM DESCRIPTION: RAD - Abdomen 1 View (KUB) - 07/23/2019 1:01 pm CLINICAL HISTORY: Abdomen distention COMPARISON: Abdomen Pelvis W Contrast dated 07/20/2019 FINDINGS: NG tube is in place. Stomach appears decompressed. There is a large amount of stool in the left-side transverse colon and descending colon. Moderate stool volume in the rectum. The colon is d istended to an estimated 8-9 cm. No free air or pneumatosis seen. Small bowel does not appear dilated . Right femoral vascular access catheter is in place. Skin kimberly are in place from right inguinal h ernia repair. No suspicious calcifications. No significant bony findings IMPRESSION: Air and stool distended colon from cecum to rectum. Small bowel does not appear dilated. No free air or pneumatosis.
[2019-07-23] MEDS: D50W 25 GM/50 ML SYRINGE/VIAL IV PRN (14:06)
[2019-07-23] MEDS ORDERED: DEXTROSE 10%-WATER 500 ML IV SCH (14:15)
[2019-07-23] MEDS: NOREPINEPHRINE 8 MG in D5W 250 ML IV PRN (14:25)
[2019-07-23] MEDS ORDERED: SOD POLYSTYREN SUL 15 GM/60 ML UCUP PO ONE (15:00)
[2019-07-23 16:52] VITALS: TEMP 96.7
[2019-07-23] MEDS ORDERED: METHYLPREDNISOLONE 40 MG INJ IV SCH (17:00)
--- NOTE | 2019-07-23 17:10 | P.PN ---
Subjective Date of Service: 07/23/19 Primary Care Provider: none Chief Complaint: Respiratory faiure and shock and multiorga failure Subjective: Worsening (Pt condition is worsening. Multiorgan failure on 100% Fio2.) Review of Systems is unable to be obtained Physical Examination - Vital Signs Temperature: 96.7 F Blood Pressure: 95/73 Pulse: 96 Respirations: 19 Pulse Ox (%): 93 - Physical Exam General: Unresponsive Respiratory: Clear to auscultation bilaterally, Diminished Cardiovascular: No edema, Regular rate/rhythm Gastrointestinal: Other (distented with diminshed bowel sounds) - Studies Medications List Reviewed: Yes Assessment & Plan - Problems (Diagnosis) (1) Shock Current Visit: Yes Status: Acute Plan: Multiorgan failure, renal and hepatic failure. on Fio2 100% in coma. Hypogycemia and hyprkalemia. Unable to tolerate dialysis. On Levophed and vasopression Acidotic. On Maximal support. DW family conider DNR, Pt jeremíasley to surivive COVID neg. CXRy cleal.
[2019-07-23 19:38] VITALS: BP 140/33
[2019-07-24] MEDS ORDERED: VANCOMYCIN/NS 1 gm 1 GM/250 ML BAG IV SCH (06:00)
--- NOTE | 2019-07-24 15:28 | P.DS ---
Admission Date: 07/20/19 (Hospitalist) Discharge Date: 07/24/19 Primary Care Provider: none Disposition: Reason for Admission: Respiratory faiure and shock and multiorga failure - Problems (1) Shock Status: Acute Brief History of Present Illness: Patient is 79 years of age status post hernia operation and became armed unresponsive was intubated is currently in shock on vasopressors ventilator daughter at the bedside he has a history of COPD very heavy smoker is not using any bronchodilators at home very active at baseline no prior history of coronary artery disease he does have some carotid disease and was operated on the left side of his neck this admission was precipitated by incarcerated hernia and developed sudden onset of pain takes blood pressure pills Hospital Course: Patient is 79 years of age who underwent a repair of his right inguinal incarcerated hernia postoperatively patient developed refractory shock presumed sepsis severely hypotensive acute renal failure liver failure abdominal distention multiorgan failure unable to do dialysis his condition deteriorated also became very hypoglycemic discuss with family members and he was made DNR and patient is a possibility that he had aspirated when July 21 patient was on maximal support on antibiotics 100% FiO2 and significant doses of vasopressors Vital Signs/Physical Exam: Temp Pulse Resp BP Pulse Ox 96.7 F L 93 H 20 140/33 L 93 07/23/19 17:09 07/23/19 17:45 07/23/19 17:45 07/23/19 17:45 07/23/19 17:09 Laboratory Data at Discharge: WBC 12.7 K/uL (4.3-10.9) H D 07/23/19 05:10 Hgb 10.7 g/dL (13.6-17.9) L 07/23/19 05:10 Hct 32.9 % (39.6-49.0) L 07/23/19 05:10 Plt Count 99 K/uL (152-406) L D 07/23/19 05:10 PT 26.3 SECONDS (9.5-12.5) H 07/23/19 11:00 INR 2.26 07/23/19 11:00 APTT 189.4 SECONDS (24.3-36.9) H* 07/23/19 11:00 Sodium 134 mmol/L (136-145) L 07/23/19 05:10 Potassium 6.6 mmol/L (3.5-5.1) H* 07/23/19 12:53 BUN 56 mg/dL (7-18) H 07/23/19 05:10 Creatinine 4.02 mg/dL (0.55-1.3) H 07/23/19 05:10 Glucose 130 mg/dL (74-106) H 07/23/19 05:10 Uric Acid 8.1 mg/dL (3.5-7.2) H 07/22/19 04:02 Phosphorus 8.6 mg/dL (2.5-4.9) H* D 07/23/19 05:10 Magnesium 2.5 mg/dL (1.8-2.4) H 07/23/19 05:10 Total Bilirubin 2.4 mg/dL (0.2-1.0) H 07/23/19 11:00 AST 7620 U/L (15-37) H* D 07/23/19 11:00 ALT 4386 U/L (12-78) H* D 07/23/19 11:00 Alkaline Phosphatase 261 U/L (45-117) H 07/23/19 11:00 Lipase 64 U/L (73-393) L 07/20/19 08:04 Home Medications: Amlodipine [Norvasc] 10 mg PO DAILY 07/20/19 Aspirin Chewable [Aspirin Chewable*] 81 mg PO DAILY 07/20/19 Atorvastatin Calcium [Lipitor] 40 mg PO BEDTIME 07/20/19 lisinopriL [Lisinopril] 20 mg PO BID 07/20/19
[2019-07-26 13:17] LABS: HBsAG Nonreactive (Nonreactive)
== END 2019-07-23 18:53 | disposition expired | DRG 350 ==
LOC: ER 07:27 → ERHOLD 10:36 → 3RD-ICU 14:38
PROVIDERS: ADMIT Family Medicine; ATTEND Family Medicine
PROC: 0YU50JZ Supplement Right Inguinal Region with Synthetic Substitute, Open Approach (ICD-10-PCS; principal; 2019-07-20 10:00)
PROC: 5A12012 Performance of Cardiac Output, Single, Manual (ICD-10-PCS; 2019-07-22)
PROC: 02HV33Z Insertion of Infusion Device into Superior Vena Cava, Percutaneous Approach (ICD-10-PCS; 2019-07-22)
PROC: 5A1935Z Respiratory Ventilation, Less than 24 Consecutive Hours (ICD-10-PCS; 2019-07-22)
PROC: 0BH17EZ Insertion of Endotracheal Airway into Trachea, Via Natural or Artificial Opening (ICD-10-PCS; 2019-07-22)
PROC: 5A1D70Z Performance of Urinary Filtration, Intermittent, Less than 6 Hours Per Day (ICD-10-PCS; 2019-07-22)
DX: K40.30 Unilateral inguinal hernia, with obstruction, without gangrene, not specified as recurrent (principal); G92 Toxic encephalopathy; N17.0 Acute kidney failure with tubular necrosis; K72.00 Acute and subacute hepatic failure without coma; J69.0 Pneumonitis due to inhalation of food and vomit; T81.12XA Postprocedural septic shock, initial encounter; J96.91 Respiratory failure, unspecified with hypoxia; T81.44XA Sepsis following a procedure, initial encounter; E87.2 Acidosis; D68.4 Acquired coagulation factor deficiency; Z66 Do not resuscitate; I10 Essential (primary) hypertension; F17.210 Nicotine dependence, cigarettes, uncomplicated; E86.0 Dehydration; E11.65 Type 2 diabetes mellitus with hyperglycemia; Z79.82 Long term (current) use of aspirin; Z79.899 Other long term (current) drug therapy; Z86.73 Personal history of transient ischemic attack (TIA), and cerebral infarction without residual deficits; E83.51 Hypocalcemia; I95.9 Hypotension, unspecified; R00.0 Tachycardia, unspecified; J44.9 Chronic obstructive pulmonary disease, unspecified; E87.5 Hyperkalemia; R00.1 Bradycardia, unspecified; Z20.828 Contact with and (suspected) exposure to other viral communicable diseases; D69.6 Thrombocytopenia, unspecified; D64.9 Anemia, unspecified; R31.9 Hematuria, unspecified; R80.9 Proteinuria, unspecified
CPT/HCPCS: 36415; 70450; 71045; 74018; 74177; 76770; 80048; 80076; 81003; 81015; 82550; 82565; 82805; 82947; 83010; 83036; 83605; 83615; 83690; 83735; 84100; 84132; 84145; 84439; 84443; 84550; 85025; 85610; 85730; 86317; 86705; 87040; 87086; 87088; 87340; 88302; 90935; 93306; 94002; 94003; 94640; 96365; 96367; 96375; 97161; 99285; J0360; J0744; J1100; J1644; J1720; J2250; J2270; J2405; J2543; J2704; J2710; J2920; J3010; J3411; J7030; J7040; J7060; J7120; J7799; P9047; Q9967; U0002